=== PATIENT | female | born 1965 | race Caucasian/White ===

== ENCOUNTER 2020-08-02 11:49 | Emergency (ER) | payer BC, SELFPAY ==
[2020-08-02 11:58] VITALS: BP 110/69; PULSE 78; RESP 18; TEMP 36.8; O2SAT 99
--- NOTE | 2020-08-02 13:01 | ED.GENADULT ---
HPI - General Adult General Chief complaint: Neck Pain/Injury Stated complaint: neck pain shooting down left shoulder Time Seen by Provider: 08/02/20 12:40 Source: patient and RN notes reviewed Mode of arrival: ambulatory Limitations: no limitations History of Present Illness HPI narrative: Patient presents today complaining of left neck pain radiating to the left shoulder x2 days. 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 Patient works for [employer]. Currently rates her pain 8/10. She is been taking Tylenol, ibuprofen, and using heat. Reports these interventions helped initially, but are not any longer. She does report some tingling to the left elbow. Pain increases with movement of the neck and arm. MD complaint: Left neck pain radiating to the left shoulder Related Data Allergies Allergy/AdvReac Type Severity Reaction Status Date / Time No Known Allergies Allergy Verified 08/02/20 12:00 Review of Systems Review of Systems: Narrative: CONSTITUTIONAL: Denies body aches, fever, chills, or sweats. EYES: Denies visual changes, redness, or discharge. ENT: Denies rhinorrhea, congestion, sore throat, or otalgia. CARDIOVASCULAR: Denies chest pain, palpitations, or edema. RESPIRATORY: Denies cough or dyspnea. GASTROINTESTINAL: Denies abdominal pain, nausea, vomiting, or diarrhea. GENITOURINARY: Denies dysuria or hematuria. SKIN: Denies rash, itching, or wounds. MUSCULOSKELETAL: Denies , or myalgia.+ Pain radiating to the left shoulder NEUROLOGIC: Denies headache, numbness, or weakness. + Tingling to the left elbow PSYCH: Denies depression or anxiety. PMFSH Comments At time of signature, I have reviewed and agree with nursing past medical, surgical, social and family history unless otherwise noted. Please see nursing chart for further information. There is no relevant family history pertinent to the presenting complaint Exam Narrative: Exam Narrative: GENERAL: Well-appearing, well-nourished, and in mild pain distress. HEAD: Normocephalic, atraumatic. EYES: EOMI. No redness or drainage. Conjunctivae normal. ENT: Mucous membranes pink and moist. NECK: Supple. No lymphadenopathy. Tenderness to the left cervical paraspinal muscles. This tenderness extends to the superior trapezius to the left shoulder. Palpation of the superior portion of the left trapezius reproduces tingling to the left tricep area. Pain is somewhat limited with right ear to shoulder as well as with rightward gaze, due to pain. CHEST: No respiratory distress. MUSCULOSKELETAL: No bony tenderness of the thoracic or lumbar spine. EXTREMITIES: Range of motion of the left arm is normal, but does cause pain to the left superior trapezius area. SKIN: Warm, dry, no rash. Capillary refill normal. Normal skin turgor. NEURO: No focal deficits. Alert and oriented x3. Gait steady. PSYCH: Normal affect. No signs of depression or anxiety. Course Vital Signs Vital signs: Vital Signs Temperature 98.2 F 08/02/20 11:58 Pulse Rate 78 08/02/20 11:58 Respiratory Rate 18 08/02/20 11:58 Blood Pressure 110/69 08/02/20 11:58 Pulse Oximetry 99 08/02/20 11:58 Temperature 98.2 F 08/02/20 11:58 Pulse Rate 78 08/02/20 11:58 Respiratory Rate 18 08/02/20 11:58 Blood Pressure 110/69 08/02/20 11:58 Pulse Oximetry 99 08/02/20 11:58 Reviewed Medical Decision Making Differential Diagnosis Differential Diagnosis: Cervical radiculopathy, muscle strain, trapezius strain, cervical strain, bulging disc Vital Signs Vital Signs: Vital Signs Temperature 98.2 F 08/02/20 11:58 Pulse Rate 78 08/02/20 11:58 Respiratory Rate 18 08/02/20 11:58 Blood Pressure 110/69 08/02/20 11:58 Pulse Oximetry 99 08/02/20 11:58 Temperature 98.2 F 08/02/20 11:58 Pulse Rate 78 08/02/20 11:58 Respiratory Rate 18 08/02/20 11:58 Blood Pressure 110
== END 2020-08-02 13:05 | disposition home or self-care (01) ==
PROVIDERS: Emergency Provider Nurse Practitioner
DX: S46.812A Strain of other muscles, fascia and tendons at shoulder and upper arm level, left arm, initial encounter (principal); X58.XXXA Exposure to other specified factors, initial encounter; Y99.0 Civilian activity done for income or pay
CPT/HCPCS: 99213; G0463